=== PATIENT | female | born 1995 | race Caucasian/White ===

== ENCOUNTER 2017-05-05 22:07 | Inpatient (IN) | payer MEDICAID, OTHER ==
--- NOTE | 2017-05-05 23:01 | ED ---
Psych HPI - General Chief Complaint: Psychiatric Symptoms Stated Complaint: Mental Health Time Seen by Provider: 05/05/17 22:26 Source: patient Mode of arrival: EMS - History of Present Illness Initial Comments: This patient is a 21-year-old woman who presents to be evaluated for depression and having some suicidal ideation today. The patient states that she has history of depression and usually takes Lamictal for this. Over the past few days she has had significant stress, from the fact that she has been having to live in the same building with an ex-boyfriend. Tonight they reportedly had a bit of an argument and it resulted in her feeling like she wants take an overdose of her medications. She states that she told her mother about this and then she also told Sheriff thomas who brought her to the EMS station resulting in her coming here. She denies hallucinations. She denies actually taking any active steps to harm herself. MD Complaint: suicidal ideation, feels depressed Onset/Timin -: days(s) Associated Psychiatric Symptoms: depression History of same: Yes Quality: changing over time Improves With: none Worsens With: none Context: significant life stressor Associated Symptoms: denies other symptoms - Related Data Home Medications Medication Instructions Recorded Confirmed Cyclobenzaprine [Flexeril] 10 mg PO BID 05/05/17 05/05/17 Etodolac [Lodine] 200 mg PO 05/05/17 lamoTRIgine [LaMICtal] 100 mg PO BID 05/05/17 05/05/17 Allergies Allergy/AdvReac Type Severity Reaction Status Date / Time No Known Allergies Allergy Verified 05/05/17 22:32 Review of Systems ROS Statement: Those systems with pertinent positive or pertinent negative responses have been documented in the HPI. ROS Other: All systems not noted in ROS Statement are negative. Constitutional: Denies: fever, chills Respiratory: Denies: cough, dyspnea Cardiovascular: Denies: chest pain, palpitations Gastrointestinal: Denies: abdominal pain, vomiting, diarrhea Genitourinary: Denies: dysuria, hematuria, abnormal menses Musculoskeletal: Denies: back pain Skin: Denies: rash Neurological: Denies: headache, weakness, numbness Past Medical History Past Medical History: No Reported History History of Any Multi-Drug Resistant Organisms: None Reported Past Surgical History: No Surgical Hx Reported Past Psychological History: No Psychological Hx Reported Smoking Status: Current some day smoker Past Alcohol Use History: None Reported Past Drug Use History: None Reported - Past Family History family Additional Family Medical History / Comment(s): srong family history of CAD and cancer General Exam Limitations: no limitations General appearance: alert, in no apparent distress, obese Head exam: Present: atraumatic, normocephalic Eye exam: Present: normal appearance. Absent: scleral icterus, conjunctival injection ENT exam: Present: normal oropharynx Neck exam: Present: normal inspection, full ROM Respiratory exam: Present: normal lung sounds bilaterally. Absent: respiratory distress, wheezes, rales, rhonchi, stridor Cardiovascular Exam: Present: regular rate, normal rhythm, normal heart sounds. Absent: systolic murmur, diastolic murmur, rubs, gallop GI/Abdominal exam: Present: soft. Absent: distended, tenderness, guarding, rebound Extremities exam: Present: normal inspection, normal capillary refill. Absent: pedal edema, calf tenderness Back exam: Present: normal inspection. Absent: CVA tenderness (R), CVA tenderness (L) Neurological exam: Present: alert Psychiatric exam: Present: depressed, suicidal ideation. Absent: agitated, anxious, flat affect, homicidal ideation Skin exam: Present: warm, dry, intact, normal color. Absent: rash Course Vital Signs 05/05/17 05/06/17 22:26 00:58 Temperature 100.3 F H 97.9 F Pulse Rate 95 87 Respiratory 20 18 Rate Blood Pressure 146/88 137/84 O2 Sat by Pulse 99 100 Oximetry Medical Decision Making - Lab Data Result diagrams: 05/07/17 09:08 05/07/17 09:08 Lab Results 05/05/17 05/05/17 Range/Units 23:30 23:30 Urine HCG, Qual Not Detected (Not Detectd) Urine Opiates Screen Not Detected (NotDetected) Ur Oxycodone Screen Not Detected (NotDetected) Urine Methadone Screen Not Detected (NotDetected) Ur Propoxyphene Screen Not Detected (NotDetected) Ur Barbiturates Screen Not Detected (NotDetected) U Tricyclic Antidepress Not Detected (NotDetected) Ur Phencyclidine Scrn Not Detected (NotDetected) Ur Amphetamines Screen Not Detected (NotDetected) U Methamphetamines Scrn Not Detected (NotDetected) U Benzodiazepines Scrn Not Detected (NotDetected) Urine Cocaine Screen Not Detected (NotDetected) U Marijuana (THC) Screen Not Detected (NotDetected) Disposition Clinical Impression: Mood disorder Disposition: ADMITTED IP TO THIS HOSP Condition: Fair
[2017-05-05 23:52] LABS: Amphetamine Screen,Urine Not Detected (NotDetected); Barbiturate Screen,Urine Not Detected (NotDetected); Benzodiazepines Screen,Urine Not Detected (NotDetected); Cocaine Screen,Urine Not Detected (NotDetected); Methadone Screen, Urine Not Detected (NotDetected); Opiate Screen,Urine Not Detected (NotDetected); Oxycodone Screen, Urine Not Detected (NotDetected); Phencyclidine Screen,Urine Not Detected (NotDetected); Tricyclic Antidepressant,Urine Not Detected (NotDetected); Urn Cannabinoid Scrn Not Detected (NotDetected)
[2017-05-06] MEDS ORDERED: MAGNESIUM HYDROXIDE 2,400 MG/10 ML CUP PO PRN (00:59)
[2017-05-06] MEDS ORDERED: ZIPRASIDONE 20 MG VIAL IM PRN (00:59)
[2017-05-06] MEDS ORDERED: MAG HYDROX/AL HYDROX/SIMETH 30 ML CUP PO PRN (00:59)
[2017-05-06] MEDS ORDERED: ACETAMINOPHEN TAB 325 MG TAB PO PRN (00:59)
[2017-05-06 01:32] VITALS: BMI 38.1
--- NOTE | 2017-05-06 07:20 | P.MDCNMH ---
History of Present Illness H&P Date: 05/06/17 Chief Complaint: medical management 21 year old female with no significant past medical history , presented due to suicidal ideation and depression. She has a previous diagnosis of depression , and claims to be compliant with her medications. She was having thoughts of suicidal ideation, attempting to over dose or jump off the bridge. Patient denies any physical complaints at this time, and denies any ongoing medical concerns. Review of Systems Constitutional: Patient denies fever, denies chills, denies night sweating, denies significant weight changes Eyes: Patient denies visual changes, denies eye pain ENT: Patient denies ear pain, denies rhinorrhea, denies sore throat Cardiovascular: Patient denies chest pain, denies exertional dyspnea, denies peripheral leg edema, denies orthopnea, denies paroxysmal nocturnal dyspnea Respiratory:Patient denies cough, denies wheezing, denies shortness of breath Gastrointestinal: Patient denies diarrhea, denies constipation, denies nausea , denies vomiting, denies abdominal pain Genitourinary: Patient denies dysuria, denies hematuria, denies changes in urinary habits, denies genital lesions Musculoskeletal: Patient denies muscle pain, denies joint pain Psychiatric: Patient reports mood swings, anxiety, depression. Endocrine: Patient denies heat intolerance, denies cold intolerance, denies excessive thirst, denies polyuria Neurological: Patient denies focal neurologic deficits, denies weakness, denies numbness, denies tingling Hem/Lymphatic: Patient denies bleeding tendency, denies bruising, denies swollen lymph glands Allergic/Immun: Patient denies recent allergic reactions Skin: Patient denies rashes, denies pruritis, denies ulcers Past Medical History Past Medical History: No Reported History History of Any Multi-Drug Resistant Organisms: None Reported Past Surgical History: No Surgical Hx Reported Past Anesthesia/Blood Transfusion Reactions: No Reported Reaction Past Psychological History: No Psychological Hx Reported Smoking Status: Light tobacco smoker Past Alcohol Use History: None Reported Past Drug Use History: None Reported - Past Family History family Additional Family Medical History / Comment(s): srong family history of CAD and cancer Medications and Allergies Home Medications and Allergies Comment(s): reviewed Home Medications Medication Instructions Recorded Confirmed Type Cyclobenzaprine [Flexeril] 10 mg PO BID 05/05/17 05/05/17 History Etodolac [Lodine] 200 mg PO 05/05/17 History lamoTRIgine [LaMICtal] 100 mg PO BID 05/05/17 05/05/17 History Allergies Allergy/AdvReac Type Severity Reaction Status Date / Time No Known Allergies Allergy Verified 05/05/17 22:32 Physical Exam Vitals: Vital Signs Temp Pulse Pulse Resp BP BP Pulse Ox 05/06/17 01:23 98.7 F 83 14 133/78 100 05/06/17 00:58 97.9 F 87 18 137/84 100 05/05/17 22:26 100.3 F H 95 20 146/88 99 Intake and Output 05/05/17 05/06/17 05/06/17 22:59 06:59 14:59 Other: Weight 102.058 kg 107.1 kg Constitutional: No acute distress, conversant, obese Eyes: Anicteric sclerae, moist conjunctiva, no lid-lag Pupils equal round reactive to light ENMT: NC/AT Oropharynx clear, no erythema, exudates Neck: Supple, FROM, no masses, or JVD No carotid bruits No thyromegaly Lungs: Clear to auscultation Clear to percussion Normal respiratory effort, no accessory muscle use Cardiovascular: Heart regular in rate and rhythm, No murmurs, gallops, or rubs No peripheral edema Abdominal: Soft Nontender, no guarding, rebound or rigidity Abdomen moving with respiration Normoactive bowel sounds No hepatomegaly, No splenomegaly No palpable mass No abdominal wall hernia noted Skin: Normal temperature, tone, texture, turgor No induration No subcutaneous nodules No rash, lesions No ulcers Extremities: No digital cyanosis No clubbing Pedal pulses intact and symmetrical Radial pulses intact and symmetrical No calf tenderness Psychiatric: Alert and oriented to person, place and time depressed affect Poor judgment Neuro Muscles Strength 5/5 in all 4 extremities Sensation to light touch grossly present throughout No focal sensory deficits Lymphatics: no palpable cervical or supraclavicular, or inguinal lymph nodes Cranial Nerve Examination - Cranial Nerves Cranial Nerve II- Optic: Intact Cranial Nerve III- Oculomotor: Intact Cranial Nerve IV- Trochlear: Intact Cranial Nerve V- Trigeminal: Intact Cranial Nerve - Abducens: Intact Cranial Nerve VII- Facial: Intact Cranial Nerve VIII- Auditory: Intact Cranial Nerve IX- Glossopharyngeal: Intact Cranial Nerve X- Vagus: Intact Cranial Nerve XI- Accessory: Intact Cranial Nerve XII- Hypoglossal: Intact Assessment and Plan Plan: #Suicidal ideation #Depression Management per psych Suicide precautions #Occasional smoking Counseled to quit smoking Dictating replacement therapy offered #DVT prophylaxis Low risk and ambulatory Thank you for allowing us to participate in the care of this patient. We will follow peripherally. Do not hesitate to contact us with questions. Someone can be reached from the [facility] hospitalist group at all hours of the day at [phone].
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
[2017-05-06] MEDS: NAPROXEN 250 MG TAB PO SCH ×2 (10:54→20:51)
[2017-05-06] MEDS: OXcarbazepine 300 MG TAB PO SCH ×2 (10:54→20:52)
[2017-05-06] MEDS ORDERED: MD COMMUNICATION TO PHARMACY 1 EACH MISC PO SCH (16:45)
[2017-05-06] MEDS: DASETTA PO SCH (17:17)
[2017-05-06] MEDS: QUEtiapine 100 MG TAB PO SCH (20:52)
[2017-05-07] MEDS: OXcarbazepine 300 MG TAB PO SCH ×2 (08:54→20:18)
[2017-05-07] MEDS: DASETTA PO SCH (08:54)
[2017-05-07] MEDS: NAPROXEN 250 MG TAB PO SCH ×2 (08:55→20:17)
--- NOTE | 2017-05-07 09:34 | P.PN ---
Progress Note - Text Progress Note Date: 05/07/17 Patient was seen for a follow-up examination. She said she has been attending the groups and they have been helpful. She called her father yesterday to let him know that she is in the hospital. She got the feeling that he did not care whether she was here or not, felt bad and thought of scratching/cutting herself. She was counseled how to handle this can the situation and who is the person who is going to suffer if she cuts herself. Then she agreed that it is not a good idea to cut herself. She and her mother had a conversation and apparently patient has decided to go back and stay with her ex-boyfriend's parents. She also thinks there is a probability of she getting back with her ex -boyfriend. She takes her medications and does not have any adverse effects. However she did not sleep well last night because of all these phone calls conversations and conflicts. This is an obese ambulatory white female with good hygiene. She is polite and cooperative. She does not show any psychomotor agitation or retardation. Her speech is spontaneous relevant and goal-directed. She denies suicidal and homicidal thoughts. She denies hallucinations and delusional thinking. She is well oriented with adequate memory concentration general knowledge etc. Plan: Continue Seroquel, Trileptal, groups and other therapies.
[2017-05-07 09:37] LABS: Basophils % (A) 0 %; Eosinophils # (A) 0.2 k/uL (0-0.7); Eosinophils % (A) 2 %; HCT 38.9 % (34.0-46.0); HGB 12.2 gm/dL (11.4-16.0); Lymphocytes # (A) 2.3 k/uL (1.0-4.8); Lymphocytes % (A) 31 %; MCH 26.4 pg (25.0-35.0); MCHC 31.4 g/dL (31.0-37.0); Mean Platelet Volume 8.9; Monocytes # (A) 0.4 k/uL (0-1.0); Monocytes % (A) 5 %; Neutrophils # (A) 4.4 k/uL (1.3-7.7); Neutrophils % (A) 60 %; Platelet Count 258 k/uL (150-450); RBC 4.63 m/uL (3.80-5.40); RDW 15.4 % (11.5-15.5); WBC 7.4 k/uL (4.0-11.0)
[2017-05-07 09:50] LABS: ALT 6 U/L (9-52); AST 15 U/L (14-36); Albumin 3.8 g/dL (3.5-5.0); Alkaline Phosphatase 47 U/L (38-126); Anion Gap 12 mmol/L; Blood Urea Nitrogen 10 mg/dL (7-17); Calcium 9.4 mg/dL (8.4-10.2); Carbon Dioxide 22 mmol/L (22-30); Chloride 107 mmol/L (98-107); Cholesterol 191 mg/dL (<200); Glucose 127 mg/dL (74-99); HDL Cholesterol 39 mg/dL (40-60); Potassium 4.4 mmol/L (3.5-5.1); Sodium 141 mmol/L (137-145); Total Bilirubin 0.3 mg/dL (0.2-1.3); Total Protein 6.8 g/dL (6.3-8.2)
[2017-05-07 10:27] LABS: LDL Cholesterol,Calculated 99 mg/dL (0-99); Triglycerides 264 mg/dL (<150)
[2017-05-07 18:32] LABS: Hemoglobin A1C 4.9 % (4.0-6.0)
[2017-05-07] MEDS: QUEtiapine 100 MG TAB PO SCH (20:18)
[2017-05-07 21:41] LABS: Amorphous Sediment,Urine Occasional /hpf; Appearance,Urine Cloudy (Clear); Bacteria,Urine Rare /hpf; Bilirubin,Urine Negative (Negative); Blood,Urine Negative (Negative); Color,Urine Light Yellow; Glucose,Urine (UA) Negative (Negative); Ketones,Urine Negative (Negative); Leukocyte Esterase,Urine Negative (Negative); Mucus,Urine Rare /hpf; Nitrite,Urine Negative (Negative); Protein,Urine Negative (Negative); RBC,Urine 1 /hpf (0-5); Specific Gravity,Urine 1.009 (1.001-1.035); Squamous Epithelial Cell,Urine 9 /hpf (0-4); Urobilinogen,Urine <2.0 mg/dL (<2.0); WBC,Urine 2 /hpf (0-5)
[2017-05-08 06:51] VITALS: RESP 16; TEMP 98.4
[2017-05-08] MEDS: OXcarbazepine 300 MG TAB PO SCH (08:29)
[2017-05-08] MEDS: NAPROXEN 250 MG TAB PO SCH (08:30)
[2017-05-08] MEDS: DASETTA PO SCH (08:30)
--- NOTE | 2017-05-08 10:20 | P.DS ---
Providers Date of admission: 05/06/17 00:43 Expected date of discharge: 05/08/17 Attending physician: Leandro Bender Consults: 05/06/17 00:59 Consult Physician Routine Consulting Provider: [facility] Reason/Comments: H & P Do you want consulting provider notified?: Yes Primary care physician: Rigoberto Rogelio [facility] Course: Patient had her psychiatric evaluation, physical examination and psychosocial evaluation. After psychiatric examination and discussing her condition and proposed treatment it was agreed to start her on Seroquel 100 mg at bedtime and Trileptal 300 mg twice a day for mood stabilization her other home medications where discontinued and she was started on naproxen for chronic back and body pain. She did well on these medications even though she said naproxen didn't help her well and would rather be taking Lodine as she was taking at home instead of naproxen. She attended the groups interacted with peers and staff members and did not have any adverse effects from medication. Her mood became cheerful, has been able to sleep well at night etc. She also agreed to comply with outpatient treatment. In view of all these it was agreed to discharge her. Condition on discharge: This is an obese ambulatory white female with good hygiene. She is polite friendly cheerful and cooperative. She does not show any psychomotor agitation or retardation. Her speech is spontaneous relevant and goal-directed. Her mood is cheerful and affect is appropriate. She denies suicidal and homicidal ideas. She denies hallucinations and delusional thinking. She is well oriented with good memory concentration general fund of knowledge etc. Her insight and judgment have improved quite a bit. 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 NKDA. Chronic back pain. Patient was advised and agreed to take her medications as prescribed, not to drive or operate missionary if she feels sleepy, to learn better coping skills through therapy, not to drink alcohol or use drugs, to inform her doctor if she gets , to discuss with her psychiatrist and or therapist if she gets suicidal thoughts, and go to nearest ER if she cannot get hold of her psychiatrist or therapist. Plan - Discharge Summary Discharge Rx Participant: No New Discharge Prescriptions: New Dasetta 1 each PO DAILY OXcarbazepine [Trileptal] 300 mg PO BID 30 Days #60 tab QUEtiapine [SEROquel] 100 mg PO HS 30 Days #100 tab Continue Etodolac [Lodine] 200 mg PO Discontinued lamoTRIgine [LaMICtal] 100 mg PO BID Cyclobenzaprine [Flexeril] 10 mg PO BID Discharge Medication List Etodolac [Lodine] 200 mg PO 05/05/17 [History] Dasetta 1 each PO DAILY 05/08/17 [Rx] OXcarbazepine [Trileptal] 300 mg PO BID 30 Days #60 tab 05/08/17 [Rx] QUEtiapine [SEROquel] 100 mg PO HS 30 Days #100 tab 05/08/17 [Rx] Follow up Appointment(s)/Referral(s): Antoine Leal [Outside] - 05/10/17 11:00 am (Alejandra Scales) Rigoberto Mercado MD [Primary Care Provider] - 1-2 days Activity/Diet/Wound Care/Special Instructions: Activity and diet as tolerated. Avoid the use of street drugs and alcohol. Remove all firearms from the home. Take all medications as prescribed. Follow up with you Primary Care provider in 1-2 days. When you are in need of refills on your medications please contact your medical provider and/or outpatient psychiatrist to have this done. Please go to scheduled outpatient appointment for aftercare. If symptoms return or become worse call the crisis line at [phone] and/or go to the nearest emergency room for an evaluation.
[2017-05-08 11:03] VITALS: BP 136/76; PULSE 94
== END 2017-05-08 12:37 | disposition home or self-care (01) | DRG 882 ==
LOC: EC 22:07 → 3MHU 05-06 00:43
PROVIDERS: ADMIT Psychiatry & Neurology Psychiatry; ATTEND Psychiatry & Neurology Psychiatry
DX: F43.24 Adjustment disorder with disturbance of conduct (principal); R45.851 Suicidal ideations; E66.9 Obesity, unspecified; F60.9 Personality disorder, unspecified; G89.29 Other chronic pain; M54.9 Dorsalgia, unspecified; F17.200 Nicotine dependence, unspecified, uncomplicated; Z62.810 Personal history of physical and sexual abuse in childhood; F32.9 Major depressive disorder, single episode, unspecified; Z79.899 Other long term (current) drug therapy; Z82.49 Family history of ischemic heart disease and other diseases of the circulatory system; Z91.5 Personal history of self-harm; Z81.3 Family history of other psychoactive substance abuse and dependence; Z80.9 Family history of malignant neoplasm, unspecified; Z71.6 Tobacco abuse counseling
CPT/HCPCS: 80053; 80061; 80306; 81001; 81025; 82075; 83036; 84443; 85025; 99285

== ENCOUNTER → 2017-08-31 | Outpatient (CLI) | payer OTHER ==
--- NOTE | 2017-08-31 15:15 | XR ---
Lumbosacral spine HISTORY: Back pain 5 views of lumbosacral spine and 6 images There is no spondylolysis or spondylolisthesis. Lumbar vertebral bodies show preserved height and bon e mineralization. Disc spaces are uniform. IMPRESSION: No significant abnormalities evident. Lumbar MRI may be of benefit.
== END | disposition home or self-care (01) ==
LOC: RADXRMAIN 11:11
PROVIDERS: ATTEND Family Medicine
DX: M54.5 Low back pain (principal)
CPT/HCPCS: 72110